=== PATIENT | female | born 1955 | race Caucasian/White ===

== ENCOUNTER 2016-04-26 04:34 | Emergency (ER) | payer OTHER ==
[~2016-04-26] VITALS: Ht 162.6 cm; Wt 88.6 kg
[2016-04-26 04:40] VITALS: BP 185/101; PULSE 66; RESP 16; TEMP 97.7; O2SAT 98
[2016-04-26] MEDS ORDERED: SODIUM CHLORIDE 0.9% FLUSH 5 ML FLUSH IVF PRN (05:15)
[2016-04-26] MEDS ORDERED: SODIUM CHLOR 0.9% 1000 ML INJ 1,000 ML IV SCH (05:15)
[2016-04-26] MEDS ORDERED: ONDANSETRON HCL 4 MG/2 ML VIAL IVP ONE (05:15)
[2016-04-26] MEDS ORDERED: MORPHINE SULFATE 4 MG/ML INJ IV PUSH ONE (05:15)
--- NOTE | 2016-04-26 05:15 | PD ---
HPI Chief Complaint: Flank/Kidney Pain Time Seen by Provider: 05:09 Travel History International Travel<30 days: No Contact w/Intl Traveler<30days: No Traveled to known affect area: No History of Present Illness HPI 61-year-old female presents to the emergency department for complaint of left- sided flank pain radiating to the left lower quadrant since 11 PM. Patient states yesterday she had some intermittent mild back pain and then it around 11* having increasing intensity of left flank pain radiating to the left lower quadrant. Patient's had a kidney stone in the past and states symptoms are same. Patient's had dry heaves. Patient denies fever chills or hematuria. Patient has noted some dysuria. Patient denies any chronic medical conditions such as hypertension aortic disease or tobacco use. Patient rates pain 10 over 10 in intensity. Patient drove herself to the emergency room. Patient unable to identify exacerbating or alleviating factors. PFSH Past Medical History Narrative Medical Kidney stones, gastric bypass, no tobacco use, nursing notes reviewed ?: Not Social History Tobacco Use: No Allergies-Medications (Allergen,Severity, Reaction): Coded Allergies: Percocet (Verified Allergy, Intermediate, Rash, 04/26/16) Reported Meds & Prescriptions Reported Meds & Active Scripts Active Zofran Liq (Ondansetron HCl) 4 Mg/5 Ml Soln 4 Mg PO Q6HR Lortab Liq (Hydrocodone-Acetaminophen Liq) 10-300 Mg/15 Ml Elix 10 Ml PO Q4-6H PRN Flomax (Tamsulosin HCl) 0.4 Mg Cap 0.4 Mg PO HS Reported Cyanocobalamin Inj (Cyanocobalamin) Unknown Strength Inj Unknown Dose IM MONTHLY Topamax (Topiramate) 25 Mg Tab 10 Mg PO DAILY Requip (Ropinirole HCl) 0.5 Mg Tab 0.5 Mg PO DAILY Cymbalta DR (Duloxetine HCl) 60 Mg Capdr 60 Mg PO DAILY Narrative Medication No medications at this time Review of Systems Except as stated in HPI: all other systems reviewed are Neg General / Constitutional: No: Fever, Chills HENT: No: Congestion Cardiovascular: No: Chest Pain or Discomfort Respiratory: No: Shortness of Breath Gastrointestinal: No: Abdominal Pain Genitourinary: Positive: Flank Pain Musculoskeletal: Positive: Myalgias, Arthralgias Skin: No Rash Neurologic: No: Weakness Psychiatric: No: Anxiety Endocrine: No: Polyuria Hematologic/Lymphatic: No: Easy Bruising Physical Exam Narrative GENERAL: Well-developed well-nourished female in no apparent distress no respiratory distress SKIN: Warm and dry. HEAD: Normocephalic. EYES: No scleral icterus. No injection or drainage. NECK: Supple, trachea midline. No JVD or lymphadenopathy. CARDIOVASCULAR: Regular rate and rhythm without murmurs, gallops, or rubs. RESPIRATORY: Breath sounds equal bilaterally. No accessory muscle use. GASTROINTESTINAL: Abdomen soft, left lower quadrant tenderness to palpation without guarding or rebound, nondistended. MUSCULOSKELETAL: No cyanosis, or edema. BACK: Nontender without obvious deformity. Negative straight leg raising. Motor and sensory exam intact. Left CVA tenderness. Data Data Last Documented VS Orders Complete Blood Count With Diff (04/26/16 05:09) Basic Metabolic Panel (Bmp) (04/26/16 05:09) Urinalysis - C+S If Indicated (04/26/16 05:09) Ct Abd/Pel W/O Iv Contrast (04/26/16 05:09) Ecg Monitoring (04/26/16 05:09) Iv Access Insert/Monitor (04/26/16 05:09) Ondansetron Inj (Zofran Inj) (04/26/16 05:15) Sodium Chloride 0.9% Flush (Ns Flush) (04/26/16 05:15) Morphine Inj (Morphine Inj) (04/26/16 05:15) Sodium Chlor 0.9% 1000 Ml Inj (Ns 1000 M (04/26/16 05:15) Hydromorphone Pf Inj (Dilaudid Pf Inj) (04/26/16 06:00) Hydromorphone Pf Inj (Dilaudid Pf Inj) (04/26/16 06:45) Labs MDM Medical Decision Making Medical Screen Exam Complete: Yes Emergency Medical Condition: Yes Medical Record Reviewed: Yes Interpretation(s) CBC & BMP Diagram 04/26/16 05:00 UA: wnl CT abd/pel: CONCLUSION: 1. There is a 3 mm stone at the left ureterovesical junction causing mild left hydronephrosis and hydroureter. Given the prominent amount of fluid around the left kidney and collecting system there may have been calyceal rupture. No other renal stones are present. 2. Non acute findings includes 14 mm simple appearing left renal cyst, mild atherosclerotic disease, small fat containing anterior abdominal wall hernia, and small hiatal hernia. Max Campos MD on April 26, 2016 at 6:22 Board Certified Radiologist. This report was verified electronically. Differential Diagnosis Flank pain obstructive uropathy pyelonephritis UTI colitis diverticulitis bowel obstruction abdominal aortic aneurysm Narrative Course IV access obtained specimens collected and sent for resulting patient administered maintenance IV fluids as well as Zofran 4 mg IV and morphine sulfate 2 mg IV and sent for CT abdomen and pelvis noncontrast kidney stone protocol imaging At 6:05 AM patient is return from CAT scan and continues to complain of abdominal pain; lab values are found to be grossly normal range; patient administered Dilaudid 0.[address] imaging performed consistent with distal 3 mm stone with hydronephrosis hydroureter; patient given additional dose of pain medication and feels stable for outpatient management. Patient aware of need for close follow-up with urologist. Patient given prescriptions for outpatient management and encouraged to strain urine. Patient encouraged to increase fluid hydration. Patient encouraged to monitor for temperature elevation or for fever and take acetaminophen as needed. Diagnosis Primary Impression: Ureterolithiasis Additional Impression: Hydronephrosis Qualified Code: N13.2 - Hydronephrosis with urinary obstruction due to ureteral calculus Referrals: Urologist call for appointment [employer] Director Urologist: Dr Burleson Patient Instructions: General Instructions, Narcotic given in the ED Additional Instructions: Increase/encourage fluid hydration Strain urine Monitor temperature for fever and take acetaminophen/Tylenol every 4 hours as needed for 100.4 days Fahrenheit or greater Take medication as prescribed Takes Zofran as needed for nausea or vomiting Follow-up with urologist Take Flomax to help with passage of stone Take Lortab suspension as often as every 4-6 hours as needed for pain greater than 5/10 in intensity; be aware that narcotic pain medication can impair judgment, delay reaction time, increased risk for fall, and cause constipation; do not drive wall taking narcotic medication. Return to the emergency department for any concerns or change in condition Med/Other Pt SpecificInfo: Prescription(s) given Scripts Ondansetron Liq (Zofran Liq)4 Mg/5 Ml Soln4 Mg PO Q6HR #60 ML Ref 0 Prov:Mindy Laughlin MD 04/26/16 Hydrocodone-Acetaminophen Liq (Lortab Liq)10-300 Mg/15 Ml Elix10 Ml PO Q4-6H PRN (PAIN) #120 ML Ref 0 Prov:Mindy Laughlin MD 04/26/16 Tamsulosin (Flomax)0.4 Mg Cap0.4 Mg PO HS #5 CAP Ref 0 Prov:Mindy Laughlin MD 04/26/16 Disposition: DISCHARGE HOME Condition: Stable Mindy Laughlin MD Apr 26, 2016 05:15 Carbon Dioxide Level 23.0 MEQ/L Anion Gap 10 MEQ/L Blood Urea Nitrogen 18 MG/DL Creatinine 1.00 MG/DL Estimat Glomerular Filtration 56 ML/MIN Rate Random Glucose 158 MG/DL Calcium Level 8.2 MG/DL [facility] Medical Decision Making Medical Screen Exam Complete: Yes Emergency Medical Condition: Yes Medical Record Reviewed: Yes Interpretation(s) CBC & BMP Diagram 04/26/16 05:00 UA: wnl CT abd/pel: CONCLUSION: 1. There is a 3 mm stone at the left ureterovesical junction causing mild left hydronephrosis and hydroureter. Given the prominent amount of fluid around the left kidney and collecting system there may have been calyceal rupture. No other renal stones are present. 2. Non acute findings includes 14 mm simple appearing left renal cyst, mild atherosclerotic disease, small fat containing anterior abdominal wall hernia, and small hiatal hernia. Max Campos MD on April 26, 2016 at 6:22 Board Certified Radiologist. This report was verified electronically. Differential Diagnosis Flank pain obstructive uropathy pyelonephritis UTI colitis diverticulitis bowel obstruction abdominal aortic aneurysm Narrative Course IV access obtained specimens collected and sent for resulting patient administered maintenance IV fluids as well as Zofran 4 mg IV and morphine sulfate 2 mg IV and sent for CT abdomen and pelvis noncontrast kidney stone protocol imaging At 6:05 AM patient is return from CAT scan and continues to complain of abdominal pain; lab values are found to be grossly normal range; patient administered Dilaudid 0.5 mg IV Diagnosis Primary Impression: Ureterolithiasis Additional Impression: Hydronephrosis Qualified Code: N13.2 - Hydronephrosis with urinary obstruction due to ureteral calculus Referrals: Urologist call for appointment [employer] Director Urologist: Dr Burleson Patient Instructions: General Instructions, Narcotic given in the ED Additional Instructions: Increase/encourage fluid hydration Strain urine Monitor temperature for fever and take acetaminophen/Tylenol every 4 hours as needed for 100.4 days Fahrenheit or greater Take medication as prescribed Takes Zofran as needed for nausea or vomiting Follow-up with urologist Take Flomax to help with passage of stone Take Lortab suspension as often as every 4-6 hours as needed for pain greater than 5/10 in intensity; be aware that narcotic pain medication can impair judgment, delay reaction time, increased risk for fall, and cause constipation; do not drive wall taking narcotic medication. Return to the emergency department for any concerns or change in condition Med/Other Pt SpecificInfo: Prescription(s) given Scripts Ondansetron Liq (Zofran Liq)4 Mg/5 Ml Soln4 Mg PO Q6HR #60 ML Ref 0 Prov:Mindy Laughlin MD 04/26/16 Hydrocodone-Acetaminophen Liq (Lortab Liq)10-300 Mg/15 Ml Elix10 Ml PO Q4-6H PRN (PAIN) #120 ML Ref 0 Prov:Mindy Laughlin MD 04/26/16 Tamsulosin (Flomax)0.4 Mg Cap0.4 Mg PO HS #5 CAP Ref 0 Prov:Mindy Laughlin MD 04/26/16 Disposition: 01 DISCHARGE HOME Condition: Stable Mindy Laughlin MD Apr 26, 2016 05:15
[2016-04-26 05:20] LABS: BLOOD, URINE NEG (NEG); GLUCOSE,URINE NEG (NEG); KETONE, URINE NEG (NEG); NITRITE,URINE NEG (NEG); PH, URINE 5.5 (5.0-8.5)
[2016-04-26 05:22] LABS: AUTOMATED NEUTROPHIL # 8.8 TH/MM3 (1.8-7.7); BASOPHIL # 0.3 TH/MM3 (0-0.2); BASOPHIL % 2.5 % (0.0-2.0); EOSINOPHIL % 0.1 % (0.0-4.0); HEMATOCRIT 36.8 % (35.0-46.0); HEMO FLAGS DIFF FINAL; LYMPH % 7.4 % (9.0-44.0); LYMPHOCYTE # 0.8 TH/MM3 (1.0-4.8); MEAN CORPUSCULAR HEMOGLOBIN 23.8 PG (27.0-34.0); MEAN CORPUSCULAR HGB CONC 32.1 % (32.0-36.0); MONO % 4.2 % (0.0-8.0); NEUT % 85.8 % (16.0-70.0); PLATELET COUNT 321 TH/MM3 (150-450); RED BLOOD COUNT 4.98 MIL/MM3 (4.00-5.30); RED CELL DISTRIBUTION WIDTH 15.8 % (11.6-17.2); WHITE BLOOD COUNT 10.3 TH/MM3 (4.0-11.0)
[2016-04-26 05:26] LABS: COMMENT (UR) CULT NOT INDICATED; CULTURE IF INDICATED CULT NOT INDICATED; RBC, URINE 0-3 /hpf (0-3); SQUAMOUS EPITHELIAL CELL URINE 0-5 /hpf (0-5); URINE COLOR YELLOW (YELLW/STRAW); WBC, URINE 0-2 /hpf (0-5)
[2016-04-26 05:28] LABS: POTASSIUM 4.7 MEQ/L (3.5-5.1)
[2016-04-26 05:40] VITALS: BP 160/82; PULSE 66; RESP 18; O2SAT 98
[2016-04-26] MEDS ORDERED: HYDROmorphone HCL PF 1 MG/ML VIAL IV PUSH ONE ×2 (06:00→06:45)
[2016-04-26] MEDS ORDERED: CYMB60CA PO (06:20)
[2016-04-26] MEDS ORDERED: ROPI.5 PO (06:21)
[2016-04-26] MEDS ORDERED: TOPA25TA8 PO (06:23)
[2016-04-26] MEDS ORDERED: VITAMIN B INJ (06:25)
--- NOTE | 2016-04-26 06:29 | RADHPO ---
EXAM DATE/TIME: 04/26/2016 05:40 [facility] COMPARISON: No previous studies available for comparison. INDICATIONS : Left flank pain for five days. ORAL CONTRAST: No oral contrast ingested. RADIATION DOSE: 20.38 CTDIvol (mGy) MEDICAL HISTORY : None SURGICAL HISTORY : None. ENCOUNTER: Initial ACUITY: 4 - 6 days PAIN SCALE: 10/10 LOCATION: Left flank TECHNIQUE: Volumetric scanning of the abdomen and pelvis was performed. Using automated exposure control and ad justment of the mA and/or kV according to patient size, radiation dose was kept as low as reasonably achievable to obtain optimal diagnostic quality images. FINDINGS: LOWER LUNGS: The visualized lower lungs are clear. LIVER: Homogeneous density without lesion. There is no dilation of the biliary tree. No calcified gallston es. SPLEEN: Normal size without lesion. PANCREAS: Within normal limits. KIDNEYS: Normal in size and shape. There is a 14 mm low-density lesion in the left mid kidney with density me asurements consistent with a simple cyst. There is mild left hydronephrosis and hydroureter with flui d around the left collecting system. A 3 mm stone is present at the left ureterovesical junction. No other renal stones are visualized.. ADRENAL GLANDS: Within normal limits. VASCULAR: There is no aortic aneurysm. There is mild atherosclerotic disease. BOWEL/MESENTERY: The stomach, small bowel, and colon demonstrate no acute abnormality. There has been prior gastric by pass surgery. The proximal and distal aspects of the surgery demonstrate no abnormality. There is a s mall hiatal hernia. There is no free intraperitoneal air or fluid. ABDOMINAL WALL: There is a small fat containing hernia along the midline of the anterior abdominal wall. RETROPERITONEUM: There is no lymphadenopathy. BLADDER: No wall thickening or mass. REPRODUCTIVE: Within normal limits. INGUINAL: There is no lymphadenopathy or hernia. MUSCULOSKELETAL: There are degenerative changes of the lumbar spine. CONCLUSION: 1. There is a 3 mm stone at the left ureterovesical junction causing mild left hydronephrosis and hyd roureter. Given the prominent amount of fluid around the left kidney and collecting system there may have been calyceal rupture. No other renal stones are present. 2. Non acute findings includes 14 mm simple appearing left renal cyst, mild atherosclerotic disease, small fat containing anterior abdominal wall hernia, and small hiatal hernia. Max Campos MD on April 26, 2016 at 6:22 Board Certified Radiologist. This report was verified electronically.
[2016-04-26 06:30] VITALS: BP 170/83; PULSE 61; RESP 16; O2SAT 95
[2016-04-26] MEDS ORDERED: ZOFR4SOL PO (06:41)
[2016-04-26] MEDS ORDERED: HYDR1ELX PO (06:41)
[2016-04-26] MEDS ORDERED: TAMS5CAP PO (06:41)
[2016-04-26 07:01] VITALS: BP 168/91; PULSE 65; RESP 18; O2SAT 96
[2016-04-27] MEDS ORDERED: CYAN1000P IM (10:24)
== END 2016-04-26 07:34 | disposition home or self-care (01) ==
LOC: PHED 04:34
DX: N20.1 Calculus of ureter (principal); N13.30 Unspecified hydronephrosis; M54.5 Low back pain
CPT/HCPCS: 74176; 80048; 81001; 85025; 96361; 96374; 96375; 96376; 99284; J1170; J2270; J2405; J7030